=== PATIENT | male | born 1955 | race American Indian/Alaskan Native ===

== ENCOUNTER 2018-10-04 17:01 | Outpatient (CLI) | payer MEDICARE | END 2018-10-04 17:02 | disposition home or self-care (01) | LOC: LAB 17:01 | PROVIDERS: ATTEND Specialist | DX: I63.22 Cerebral infarction due to unspecified occlusion or stenosis of basilar artery (principal) | CPT/HCPCS: 36415; 82747; 84443; 86592 ==